=== PATIENT | female | born 1995 | race Asian ===

== ENCOUNTER 2019-01-29 16:22 | Emergency (ER) | payer OTHER ==
[~2019-01-29] VITALS: Ht 175.3 cm; Wt 90.7 kg
[2019-01-29 16:30] VITALS: BP_SYST 138
--- NOTE | 2019-01-29 18:38 | NUR ---
Pt called from waiting room. No answer.
--- NOTE | 2019-01-29 18:45 | NUR ---
CALLED TO COME TO BED #7, UNABLE TO LOCATE PT IN WAITING ROOM.
--- NOTE | 2019-01-29 18:48 | NUR ---
3RD CALL FOR PT TO COME INTO ER, UNABLE TO LOCATE PT, CHECKED FRONT OF HOSPITAL. PT LEFT WITHOUT BEING SEEN BY AN MD.
== END 2019-01-29 21:43 | disposition home or self-care (01) ==
LOC: SED 16:22
DX: M25.572 Pain in left ankle and joints of left foot (principal); Z53.21 Procedure and treatment not carried out due to patient leaving prior to being seen by health care provider
CPT/HCPCS: 99281